=== PATIENT | male | born 1980 | race Caucasian/White ===

== ENCOUNTER 2020-11-02 15:06 | Emergency (ER) | payer OTHER ==
[2020-11-02] MEDS ORDERED: IBU600 MG PO (18:53)
== END 2020-11-02 20:06 | disposition home or self-care (01) ==
LOC: ER1 15:06
DX: M79.671 Pain in right foot (principal); G89.29 Other chronic pain; I10 Essential (primary) hypertension; Z88.1 Allergy status to other antibiotic agents; Z79.899 Other long term (current) drug therapy
CPT/HCPCS: 96372; 99283; J1885

== ENCOUNTER 2020-11-07 07:17 | Emergency (ER) | payer OTHER ==
[~2020-11-07 07:17] MED LIST: IBU600 MG PO
== END 2020-11-07 09:55 | disposition home or self-care (01) ==
LOC: ER1 07:17
DX: M79.671 Pain in right foot (principal); G89.29 Other chronic pain
CPT/HCPCS: 73630; 99283